=== PATIENT | female | born 1985 | race Two or more races ===

== ENCOUNTER 2021-08-28 22:41 | Emergency (ER) | payer OTHER ==
[~2021-08-28] VITALS: Ht 167.6 cm; Wt 70.3 kg
[2021-08-28] MEDS ORDERED: CIPRODEX OTIC7.5 ML OT (23:53)
== END 2021-08-29 00:11 | disposition home or self-care (01) ==
LOC: ER 22:41
DX: H60.91 Unspecified otitis externa, right ear (principal); H92.01 Otalgia, right ear